=== PATIENT | male | born 1995 ===

== ENCOUNTER 2017-03-29 10:09 | Emergency (ER) | payer OTHER ==
[2017-03-29 11:16] VITALS: BP 160/107
--- NOTE | 2017-03-29 11:29 | UC ---
[facility] HPI - HPI Summary HPI Summary: Patient has swelling and pain that started last night on the right back upper molar, gum swelling and redness noted, fractured tooth visible - History of Current Complaint Chief Complaint: UCDentalProblem Stated Complaint: TOOTH PAIN Time Seen by Provider: 03/29/17 11:15 Hx Obtained From: Patient Onset/Duration: Sudden Onset, Lasting Days Severity: Severe Alleviating: Nothing Related History: Previous Dental Care on Same Tooth, Swelling - Allergies/Home Medications Allergies/Adverse Reactions: Allergies Allergy/AdvReac Type Severity Reaction Status Date / Time Penicillins [PCN] AdvReac Mild Diarrhea Verified 03/29/17 11:12 Home Medications: Home Medications Ibuprofen TAB* [Advil TAB*] 800 mg PO Q6H PRN 03/29/17 [History Confirmed ] PMH/Surg Hx/FS Hx/Imm Hx Previously Healthy: Yes Endocrine History Of: Denies: Diabetes Cardiovascular History Of: Denies: Cardiac Disorders Respiratory History Of: Denies: Asthma - Surgical History Surgical History: Yes Surgery Procedure, Year, and Place: pilonidal cyst - Family History Known Family History: Negative: Cardiac Disease, Hypertension - Social History Alcohol Use: None Substance Use Type: None Smoking Status (MU): Never Smoked Tobacco Review of Systems Constitutional: Chills Skin: Negative Eyes: Negative ENT: Dental Pain, Ear Ache Respiratory: Negative Cardiovascular: Negative Gastrointestinal: Negative Genitourinary: Negative Motor: Negative Neurovascular: Negative Musculoskeletal: Negative Neurological: Negative Psychological: Negative All Other Systems Reviewed And Are Negative: Yes Physical Exam Triage Information Reviewed: Yes Appearance: Ill-Appearing, Pain Distress, Obese Vital Signs: Initial Vital Signs Temp 97.3 F 03/29/17 11:06 Pulse 83 03/29/17 11:06 Resp 16 03/29/17 11:06 BP 160/107 03/29/17 11:06 Pulse Ox 100 03/29/17 11:06 Vital Signs Reviewed: Yes Eye Exam: Normal Eyes: Positive: Conjunctiva Clear ENT: Positive: Pharyngeal erythema, TMs normal Dental: Positive: Dental Fracture @ - back right molar, Cervical Lymphadenopathy Neck exam: Normal Neck: Positive: Supple, Nontender, Enlarged Nodes @ - behind right ear Respiratory Exam: Normal Respiratory: Positive: Chest non-tender, Lungs clear, Normal breath sounds Cardiovascular Exam: Normal Cardiovascular: Positive: RRR, No Murmur, Pulses Normal Abdominal Exam: Normal Abdomen Description: Positive: Nontender, No Organomegaly, Soft Bowel Sounds: Positive: Present Musculoskeletal Exam: Normal Musculoskeletal: Positive: Strength Intact, ROM Intact, No Edema Neurological Exam: Normal Neurological: Positive: Alert, Muscle Tone Normal Psychological Exam: Normal Skin Exam: Normal Dental Complaint Course/Dx - Course Course Of Treatment: hx obtained, exam performed, meds reviewed, treated for dental abcess and pain - Differential Dx/Diagnosis Differential Diagnosis/Dx: Dental Abscess, Dental Caries, Pharyngitis, Tonsillitis Provider Diagnoses: dental abcess. dental pain Discharge - Discharge Plan Condition: Stable Disposition: HOME Patient Education Materials: Dental Abscess (ED), Hypertension (ED) Additional Instructions: 1. take the medication as prescribed. 2. Increase fluid intake. 3. Warm compresses and ibuprofen for swelling 4. follow up with the dentist. 5. Your blood pressure was elevated please follow up with your doctor if this persists when you pain is recolved.
== END 2017-03-29 11:36 | disposition home or self-care (01) ==
LOC: UCCORT 10:09
DX: K04.7 Periapical abscess without sinus (principal); K08.89 Other specified disorders of teeth and supporting structures; E66.9 Obesity, unspecified; Z88.0 Allergy status to penicillin
CPT/HCPCS: 99212; G0463

== ENCOUNTER 2017-04-12 14:26 | Emergency (ER) | payer OTHER ==
[2017-04-12 15:49] VITALS: BP 147/82
--- NOTE | 2017-04-12 16:18 | UC ---
General HPI - HPI Summary HPI Summary: PAIN AND SWELLING BEHIND LEFT EAR FOR FOUR DAYS. NO FEVER. NO EAR ACHE. NO THROAT PAIN. NO DENTAL PAIN. - History of Current Complaint Chief Complaint: Darren Stated Complaint: SWELLING BEHIND LFT EAR Time Seen by Provider: 04/12/17 15:48 Hx Obtained From: Patient Onset/Duration: Lasting Days, Still Present Onset Severity: Mild Current Severity: Mild Associated Signs & Symptoms: Negative: Abdominal Pain, Cough, Chest Pain, Edema , Fever, Headache, Immunocompromised, Nausea, Weakness - Allergy/Home Medications Allergies/Adverse Reactions: Allergies Allergy/AdvReac Type Severity Reaction Status Date / Time No Known Allergies Allergy Verified 04/12/17 15:46 PMH/Surg Hx/FS Hx/Imm Hx Previously Healthy: Yes Endocrine History Of: Denies: Diabetes Cardiovascular History Of: Denies: Cardiac Disorders Respiratory History Of: Denies: Asthma - Surgical History Surgical History: Yes Surgery Procedure, Year, and Place: pilonidal cyst - Family History Known Family History: Negative: Cardiac Disease, Hypertension - Social History Lives: With Family Alcohol Use: None Substance Use Type: None Smoking Status (MU): Never Smoked Tobacco Review of Systems Constitutional: Negative Skin: Other - TENDER LUMP BEHIND LEFT EAR Eyes: Negative ENT: Negative Respiratory: Negative Cardiovascular: Negative Gastrointestinal: Negative Genitourinary: Negative Motor: Negative Neurovascular: Negative Musculoskeletal: Negative Neurological: Negative Psychological: Negative All Other Systems Reviewed And Are Negative: Yes Physical Exam Triage Information Reviewed: Yes Appearance: Well-Appearing, No Pain Distress, Well-Nourished Vital Signs: Initial Vital Signs Temp 97.3 F 04/12/17 15:46 Pulse 90 04/12/17 15:46 Resp 16 04/12/17 15:46 BP 147/82 04/12/17 15:46 Pulse Ox 99 04/12/17 15:46 Vital Signs Reviewed: Yes Eye Exam: Normal ENT Exam: Normal ENT: Positive: Normal ENT inspection, Hearing grossly normal, Pharynx normal, TMs normal Dental Exam: Normal Neck exam: Normal Neck: Positive: Supple, Tenderness @ - LEFT POSTERIOR CERVICAL CHAIN LYMPH NODE , Enlarged Nodes @ - LEFT POSTERIOR CERVICAL CHAIN LYMPH NODE Respiratory Exam: Normal Respiratory: Positive: Chest non-tender, Lungs clear, Normal breath sounds, No respiratory distress, No accessory muscle use Cardiovascular Exam: Normal Cardiovascular: Positive: RRR, No Murmur, Pulses Normal Abdominal Exam: Normal Musculoskeletal Exam: Normal Musculoskeletal: Positive: Strength Intact, ROM Intact Neurological Exam: Normal Psychological Exam: Normal Skin Exam: Normal Course/Dx - Differential Dx - Multi-Symptom Differential Diagnoses: Metabolic Abnormality Provider Diagnoses: LEFT POSTERIOR CERVICAL CHAIN LYMPHADENOPATHY Discharge - Discharge Plan Condition: Stable Disposition: HOME Prescriptions: Amoxicillin/Clavulanate TAB* [Augmentin TAB 875*] 875 mg PO BID #20 tab Patient Education Materials: Lymphadenopathy (ED) Referrals: Robert Beard [Primary Care Provider] -
== END 2017-04-12 16:15 | disposition home or self-care (01) ==
LOC: UCCORT 14:26
DX: R59.0 Localized enlarged lymph nodes (principal)
CPT/HCPCS: 99212; G0463